=== PATIENT | male | born 1975 | race Two or more races ===

== ENCOUNTER 2023-07-10 20:28 | Emergency (ER) | payer MEDICARE ==
[~2023-07-10] VITALS: Ht 165.1 cm; Wt 81.6 kg
[2023-07-10] MEDS ORDERED: ONDANSETRON ODT 4 MG TAB.RAPDIS ONE (20:59)
[2023-07-10] MEDS ORDERED: HYDROMORPHONE 2 MG/1 ML DISP.SYRIN ONE (20:59)
[2023-07-10] MEDS: HYDROMORPHONE 1 MG/1 ML DISP.SYRIN IM ONE (21:09)
[2023-07-10] MEDS: ONDANSETRON ODT 4 MG TAB.RAPDIS SL ONE (21:09)
[2023-07-10] MEDS ORDERED: HYDR-3980 PO (21:42)
[2023-07-10] MEDS ORDERED: ONDA4TAB5 PO (21:42)
[2023-07-10 23:02] VITALS: BP 138/89; O2SAT 99
== END 2023-07-10 23:03 | disposition home or self-care (01) ==
LOC: ER 20:33
DX: S22.31XA Fracture of one rib, right side, initial encounter for closed fracture (principal); W17.89XA Other fall from one level to another, initial encounter; Y93.89 Activity, other specified; Y92.89 Other specified places as the place of occurrence of the external cause; Y99.8 Other external cause status
CPT/HCPCS: 99284; 71101; 72110; 96372; J1170; A4606; A4663; Q0162